=== PATIENT | male | born 1945 | race Caucasian/White ===

== ENCOUNTER 2022-04-23 11:18 | Outpatient (CLI) | payer MEDICARE, BC, SELFPAY ==
[2022-04-23 17:35] LABS: Chloride* 98 mmol/L (96-114); Potassium* 3.3 mmol/L (3.6-5.1); Sodium* 140 mmol/L (135-149)
[2022-04-23 17:37] LABS: Cholesterol* 147 mg/dL (90-199)
[2022-04-23 17:38] LABS: Blood Urea Nitrogen* 15 mg/dL (7-30); Carbon Dioxide* 34 mmol/L (20-32); Creatinine* 0.9 mg/dL (0.5-1.5); Estimated Glomerular Filt Rate 89 ml/min; Glucose* 135 mg/dL (60-115); Triglycerides* 129 mg/dL (40-149)
[2022-04-23 17:39] LABS: HDL Cholesterol* 44 mg/dL (>=40); LDL Cholesterol Calculated 77 mg/dL (<100)
== END 2022-04-23 11:19 | disposition home or self-care (01) ==
PROVIDERS: PCP Family Medicine; Visit Provider Family Medicine
DX: E78.5 Hyperlipidemia, unspecified (principal); I10 Essential (primary) hypertension
CPT/HCPCS: 80048; 80061

== ENCOUNTER 2023-02-10 10:35 | Outpatient (CLI) | payer MEDICARE, BC, SELFPAY | END 2023-02-10 10:36 | disposition home or self-care (01) | PROVIDERS: PCP Family Medicine; Visit Provider Family Medicine | DX: Z00.00 Encounter for general adult medical examination without abnormal findings (principal); I10 Essential (primary) hypertension; E78.5 Hyperlipidemia, unspecified; E13.9 Other specified diabetes mellitus without complications; E87.6 Hypokalemia | CPT/HCPCS: 80048; 80061 ==

== ENCOUNTER 2024-03-01 14:00 | Outpatient (CLI) | payer MEDICARE, BC, SELFPAY | END 2024-03-01 14:01 | disposition home or self-care (01) | PROVIDERS: PCP Family Medicine; Visit Provider Family Medicine | DX: I10 Essential (primary) hypertension (principal); E78.2 Mixed hyperlipidemia | CPT/HCPCS: 80048; 80061 ==

== ENCOUNTER 2025-02-25 08:54 | Outpatient (CLI) | payer MEDICARE, BC, SELFPAY | END 2025-02-25 08:55 | disposition home or self-care (01) | LOC: NFLDREF 03-02 09:53 | PROVIDERS: PCP Family Medicine; Referring Provider Family Medicine; Visit Provider Family Medicine | DX: Z00.00 Encounter for general adult medical examination without abnormal findings (principal); E13.9 Other specified diabetes mellitus without complications | CPT/HCPCS: 80053; 80061; 82043; 82570 ==